=== PATIENT | female | born 1960 | race Caucasian/White ===

== ENCOUNTER 2017-12-11 00:30 | Emergency (ER) | payer MEDICARE, MEDICAID ==
[~2017-12-11] VITALS: Ht 154.9 cm; Wt 54.5 kg
[2017-12-11] MEDS ORDERED: METOCLOPRAMIDE HCL 5 MG/ML 2 ML VIAL IVP ONE (02:30)
[2017-12-11] MEDS ORDERED: HYDROmorphone 2 MG/ML SYRINGE IVP ONE ×2 (02:30→04:45)
[2017-12-11] MEDS ORDERED: SODIUM CHLORIDE 0.9% 1,000 ML IV ONE ×2 (02:30→04:45)
[2017-12-11] MEDS ORDERED: PROMETHAZINE HCL 25 MG TABLET PO ONE (02:45)
[2017-12-11 05:43] VITALS: BP 137/67
== END 2017-12-11 06:13 | disposition home or self-care (01) ==
LOC: EMS 00:30
DX: G43.909 Migraine, unspecified, not intractable, without status migrainosus (principal); F43.20 Adjustment disorder, unspecified; G89.29 Other chronic pain; Z85.3 Personal history of malignant neoplasm of breast; Z88.6 Allergy status to analgesic agent; Z88.8 Allergy status to other drugs, medicaments and biological substances
CPT/HCPCS: 96374; 96376; 99285; J1170; J7030; J2765